=== PATIENT | male | born 1970 ===

== ENCOUNTER 2020-12-10 21:00 | Inpatient (IN) | payer OTHER ==
[~2020-12-10] VITALS: Ht 167.6 cm; Wt 67.1 kg
[2020-12-17] MEDS ORDERED: ECOTRIN325 M1 PO (14:12)
[2020-12-17] MEDS ORDERED: DILTIAZEM ER120 M2 PO (14:13)
== END 2020-12-17 17:20 | disposition home or self-care (01) | DRG 308 ==
LOC: ER 21:00 → MEDJ 12-11 12:01
PROVIDERS: ADMIT Internal Medicine; ATTEND Internal Medicine
PROC: 4A12X4Z Monitoring of Cardiac Electrical Activity, External Approach (ICD-10-PCS; principal; 2020-12-11)
PROC: 8E0ZXY6 Isolation (ICD-10-PCS; 2020-12-11)
DX: I48.91 Unspecified atrial fibrillation (principal); U07.1 COVID-19; K52.89 Other specified noninfective gastroenteritis and colitis